=== PATIENT | female | born 1990 | race Caucasian/White ===

== ENCOUNTER 2016-05-28 20:53 | Emergency (ER) | payer SELFPAY ==
[2016-05-28] MEDS ORDERED: ACETAMINOPHEN 500 MG TABLET PO ONE (21:06)
--- NOTE | 2016-05-28 21:25 | ED Physician Documentation ---
Upper Respiratory Symptoms - HISTORIAN Historian: patient - HPI Stated Complaint: fever, body aches, vomited x1 Chief Complaint: Cough/ Upper Respiratory Onset: hours Context: denies: recent foreign travel, insect bite(s), tick(s), recent chemotherapy Associated Symptoms: fever, chills, runny nose, sinus pain, productive cough, headache Further Comments: yes (26 year old female patient presents with cough, body aches, fever and congestion x 12 hours. 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 denies: eye redness, eye itching CVS/RESP: none LYMPH: denies: leg swelling GI/: none NEURO/PSYCH: denies: fainting, dizziness, confusion MS/SKIN: denies: joint pain, muscle aches - PAST HX Lung Disease: none PE Risk Factors: none Other History: other (hypothyroidism) Allergies/Adverse Reactions: Allergies Allergy/AdvReac Type Severity Reaction Status Date / Time No Known Allergies Allergy Verified 05/28/16 21:08 Home Medications: Ambulatory Orders Medication Instructions Recorded Levothyroxine Sodium [Unithroid] 75 mcg PO QDAY 05/28/16 - SOCIAL HX Smoking History: cigarettes - FAMILY HX Family History: none - VITAL SIGNS Vital Signs: Vital Signs Temp Pulse Resp BP Pulse Ox 100.3 F H 100 H 16 114/65 96 05/28/16 21:00 05/28/16 21:00 05/28/16 21:00 05/28/16 21:00 05/28/16 21:00 - REVIEWED ASSESSMENTS Nursing Assessment Reviewed: Yes Vitals Reviewed: Yes ED Results Lab/Radiology - Orders Orders: ED Orders Category Date Time Status INFLUENZA A&B Stat Lab 05/28/16 21:05 Ordered Acetaminophen [Tylenol Extra Strength] Med 05/28/16 21:06 Discontinued 1,000 mg PO NOW ONE Upper Respiratory Symptoms - EXAM General Appearance: moderate distress (ill appearing) EENT: eyes nml inspection, nml ENT inspection, lids & conjunct. nml, PERRL, ear nml, nose nml, airway nml, pharyngeal erythema Respiratory: no resp. distress, breath sounds nml, no pain on inspiration, speaks full sentences, no pleuritic chest pain, other (cough) Abdomen: non-tender, no organomegaly, nml bowel sounds, no distention CVS: reg rate & rhythm, heart sounds normal, equal pulses, no murmur, no gallop , PMI nml, no JVD, no friction rub, 24 Skin: color nml, no rash, warm,dry (very warm) Neuro/Psych: oriented x3, neuro intact, mood/affect nml, CN's nml as tested Discharge Clincal Impression: Influenza A Referrals: Davion Ruvalcaba MD [Primary Care Provider] - 2 Days Additional Instructions: A virus cannot be treated with antibiotics. Your bodys immune system will be able to fight the virus and this can be helped in a number of ways. Rest Have plenty of sleep and rest. Stay away from others while you have a cold or flu. Take simple painkillers Such as Tylenol or ibuprofen, to help relieve headaches, muscles aches and pains and fever. Keep hydrated (drink plenty of fluids) This will help keep your throat moist and replace fluid lost due to a fever and sweating. Plenty of water is best. Avoid caffeine and alcohol as they will make you more dehydrated. Eat soft food If you have a sore throat soft foods are easier to swallow. Foods such as chicken soup may help a sore throat and reduce mucous (sticky fluid). Take vitamins Vitamin C and Echinacea have proven benefits in helping to beat a cold. Talk to your doctor or health child care provider before giving your child vitamins. Use nasal drops or spray This may help to clear a blocked nose in the short term (two to three days). Saline mist, Nairs, or Little Noses are available over the counter Use warm gargles and cough lozenges These can help soothe a sore throat. Over the counter cholorseptine spray works well for sore throats. Do not give aspirin to children What to expect Your cold is likely to last a few days but may last up to ten days. A cough may linger for three weeks. The flu can last ten to 14 days. See your primary care provider if you have a fever greater than 101 after taking Tylenol and ibuprofen. Home Medications: Ambulatory Orders Levothyroxine Sodium [Unithroid] 75 mcg PO QDAY 05/28/16 Condition: Stable Disposition: 01 HOME, SELF-CARE Decision to Admit: NO Decision Time: 21:25
[2016-05-28 21:38] VITALS: BP 109/60
== END 2016-05-28 21:30 | disposition home or self-care (01) ==
LOC: ED 20:53
DX: J11.1 Influenza due to unidentified influenza virus with other respiratory manifestations (principal)
CPT/HCPCS: 87400; 99283

== ENCOUNTER 2017-04-07 17:06 | Emergency (ER) | payer SELFPAY ==
[2017-04-07 17:32] VITALS: BP 115/83
--- NOTE | 2017-04-07 17:33 | ED Physician Documentation ---
General Adult - HISTORIAN Historian: patient - HPI Stated Complaint: Sore throat, WILKINS, Aches, chest congestion Chief Complaint: General Adult Additional Information: 27yo white female who woke up yesterday feeling like she had a sore throat, chills, mild WILKINS. No fever noted. Patient has been exposed with influenza. Having some mild achy feeling. Has a pounding headache. No NVD. Cough is mild Having some wheezing noted. productive of some yellow phlegm, no blood noted. Onset: days ago (2 days) Timing: still present - ROS CONST: fever, chills - PAST HX Past History: other (hypothyroidism, depression) Other History: none Surgeries/Procedures: other (wrist surgery,) Immunizations: referred to PCP Allergies/Adverse Reactions: Allergies Allergy/AdvReac Type Severity Reaction Status Date / Time No Known Allergies Allergy Verified 04/07/17 17:23 Home Medications: Ambulatory Orders Medication Instructions Recorded Levothyroxine Sodium [Unithroid] 75 mcg PO QDAY 05/28/16 Azithromycin [Zithromax] 250 mg PO DIRECTED #6 tablet 04/07/17 - SOCIAL HX Smoking History: less than 1 pack/day (1/2 ppd) Alcohol Use: occasionally Drug Use: none - FAMILY HX Family History: Yes (DM, CAD, fatty liver disease, cancer, neuropathy.) - VITAL SIGNS Vital Signs: Vital Signs Temp Pulse Resp BP Pulse Ox 97.6 F 99 H 16 115/83 97 04/07/17 17:10 04/07/17 17:10 04/07/17 17:10 04/07/17 17:10 04/07/17 17:10 - REVIEWED ASSESSMENTS Nursing Assessment Reviewed: Yes Vitals Reviewed: Yes ED Results Lab/Radiology - Radiology Radiology Impressions: 2 views of the chest History: PATIENT STATES CHEST TIGHTNESS AND UNABLE TO CATCH BREATH FOR ONE DAY. SMOKER OF 9 YEARS No comparison studies Heart is normal in size. There is patchy right basilar infiltrate/atelectasis. No focal consolidation or pleural effusion No acute osseous pathology Impression: Patchy right basilar atelectasis/ developing infiltrate General Adult Physical Exam - PHYSICAL EXAM GENERAL APPEARANCE: mild distress EENT: no signs of dehydration, pharyngeal erythema (mild) NECK: normal inspection, thyroid normal, supple RESPIRATORY: no resp distress, chest non-tender, wheezes (mild expiratory), rhonchi (right posterior) CVS: reg rate & rhythm, heart sounds normal, equal pulses, no murmur ABDOMEN: soft, no organomegaly, normal bowel sounds SKIN: warm/dry EXTREMITIES: no edema NEURO: oriented X3, cognition normal Discharge Clincal Impression: Pneumonia Prescriptions: Azithromycin [Zithromax] 250 mg PO DIRECTED #6 tablet Referrals: Davion Ruvalcaba MD [Primary Care Provider] - 2 Days Additional Instructions: Take levaquin 500mg once a day for 10 days, Stop smoking. If your breathing gets worse to follow-up with your primary care provider or return to the ED. Condition: Stable Disposition: 01 HOME, SELF-CARE Decision to Admit: NO Date of Decison to Admit: 04/07/17 Decision Time: 18:12
[2017-04-07 19:00] LABS: EOSINOPHILS % 5.9 % (0.0-6.8); MEAN CORPUSCULAR HEMOGLOBIN 32.1 pg (28.0-34.0); MEAN CORPUSCULAR VOLUME 92.9 fl (80.0-100.0); MONOCYTES % 7.2 % (0.0-11.0); NEUTROPHILS # 3.6 # k/uL (1.4-7.7)
[2017-04-07 19:05] LABS: eGFR (African) > 60; eGFR (Non-African) > 60
--- NOTE | 2017-04-07 19:20 | Diagnostic Imaging Report ---
[facility] [address] [facility] [address] [place], [place]. [address] Report Submission Date: Apr 07, 2017 6:16:53 PM BAKERY WORKER Patient Study Name: NAT KING Date: Apr 07, 2017 6:04:20 PM BAKERY WORKER Modality Type: CR Gender: F Description: CHEST : 86 Institution: [facility] Physician: STEFAN SEGURA 2 views of the chest History: PATIENT STATES CHEST TIGHTNESS AND UNABLE TO CATCH BREATH FOR ONE DAY. SMOKER OF 9 YEARS No comparison studies Heart is normal in size. There is patchy right basilar infiltrate/atelectasis. No focal consolidation or pleural effusion No acute osseous pathology Impression: Patchy right basilar atelectasis/ developing infiltrate Electronically signed on Apr 07, 2017 6:16:53 PM BAKERY WORKER by: Shweta DEL CID
== END 2017-04-07 18:59 | disposition home or self-care (01) ==
LOC: ED 17:06
DX: J18.9 Pneumonia, unspecified organism (principal); F17.210 Nicotine dependence, cigarettes, uncomplicated
CPT/HCPCS: 71046; 80053; 85025; 87070; 87880; 99282; 99283